=== PATIENT | male | born 1960 | race Caucasian/White ===

== ENCOUNTER 2017-06-30 14:08 | Inpatient (IN) ==
[2017-06-30] MEDS ORDERED: DILTIAZEM 100 MG VIAL.ADD IV ONE (14:23)
[2017-06-30] MEDS ORDERED: ASPIRIN 325 MG TABLET ONE (14:24)
[2017-06-30] MEDS ORDERED: SODIUM CHLORIDE 0.9% 100 ML IV ONE (14:24)
[2017-06-30] MEDS ORDERED: SODIUM CHLORIDE 0.9% 1,000 ML IV STA (14:32)
[2017-06-30] MEDS ORDERED: SODIUM CHLORIDE 0.9% 500 ML IV STA (14:33)
[2017-06-30] MEDS ORDERED: ASPIRIN 325 MG TABLET PO STA ×2 (14:33→14:45)
[2017-06-30] MEDS ORDERED: NITROGLYCERIN 2% OINT 1 INCH/GM PACK TOP STA (14:45)
[2017-06-30] MEDS ORDERED: ENOXAPARIN 100 MG/ML SYRINGE SUBCUT STA (14:45)
[2017-06-30] MEDS ORDERED: ENOXAPARIN 100 MG/ML SYRINGE SUBCUT ONE (14:49)
[2017-06-30] MEDS ORDERED: NITROGLYCERIN 2% OINT 1 INCH/GM PACK TOP ONE (14:50)
[2017-06-30 14:52] LABS: Basophils # 0.1 10*3/uL (0.0-0.2); Basophils % 0.3 % (0.0-0.8); Eosinophils # 0.1 10*3/uL (0.0-0.87); Eosinophils % 0.5 % (0.00-10.9); Hematocrit 51.3 VOL% (42.0-52.0); Hemoglobin 17.7 GM/DL (14.0-18.0); Immature Granulocytes % 0.5 %; Immature Granulocytes Absolute 0.07 #; Lymphocytes # 3.1 10*3/uL (1.4-4.0); Lymphocytes % 21.4 % (21.2-54.2); Mean Corpuscular HGB Conc 34.5 GM/DL (32-36); Mean Corpuscular Hemoglobin 33 PG (27-34); Mean Corpuscular Volume 95.9 FL (87-102); Mean Platelet Volume 10.9 FL (9.6-12.0); Monocytes # 0.9 10*3/uL (0.11-0.8); Monocytes % 6.5 % (1.7-12.7); Neutrophils # 10.2 10*3/uL (1.4-7.4); Neutrophils % 70.8 % (38.7-73.9); Platelet Count 329 T/CUMM (130-400); Red Blood Count 5.35 MC/CUMM (3.8-5.5); Red Cell Distribution Width 12.5 % (9.3-17.3); White Blood Count 14.4 T/CUMM (4-12)
[2017-06-30] MEDS ORDERED: ONDANSETRON 4 MG/2 ML VIAL IV PRN (15:05)
[2017-06-30] MEDS ORDERED: ZALEPLON 5 MG CAPSULE PO PRN (15:05)
[2017-06-30] MEDS ORDERED: diphenhydrAMINE CAP 25 MG CAPSULE PO ONE (15:05)
[2017-06-30] MEDS ORDERED: DIAZEPAM 5 MG TABLET PO ONE (15:05)
[2017-06-30] MEDS ORDERED: POTASSIUM CHLORIDE RIDER 10 MEQ in PREMIX 1 EACH IV PRN (15:05)
[2017-06-30] MEDS ORDERED: MAGNESIUM SULF RIDER 2 GM in PREMIX 1 EACH IV PRN (15:05)
[2017-06-30] MEDS ORDERED: LIDOCAINE 1% 20 ML VIAL ONE (15:08)
[2017-06-30] MEDS ORDERED: HEPARIN/NACL 0.9% 2 UNITS/ML 0 ML IV ONE (15:08)
[2017-06-30] MEDS ORDERED: HEPARIN/NACL 0.9% 2 UNITS/ML 2,000 ML IV ONE (15:12)
[2017-06-30] MEDS ORDERED: fentaNYL 100 MCG/2 ML VIAL ONE (15:18)
[2017-06-30] MEDS ORDERED: MIDAZOLAM 2 MG/2 ML VIAL ONE ×2 (15:18→15:48)
[2017-06-30 15:29] LABS: Albumin 3.9 G/DL (3.4-5.0); Bilirubin,Total 2.8 MG/DL (0.2-1.0); Calcium 9.3 MG/DL (8.5-10.1); Osmolality,Calculated 274.7 MOS/KG (273-304); Potassium 4.3 MMOL/L (3.5-5.1); Total Protein 8.5 G/DL (6.4-8.3)
[2017-06-30] MEDS ORDERED: ACETAMINOPHEN/CODEINE 300-30 MG TABLET PO PRN (16:19)
[2017-06-30] MEDS ORDERED: INFLUENZA VIRUS VACCINE 0.5 ML SYRINGE IM ONE (17:09)
[2017-06-30] MEDS: SODIUM CHLORIDE 0.45% 1,000 ML IV SCH (17:31)
[2017-06-30 18:00] LABS: Risk Ratio 3.8; Thyroid Stimulating Hormone 2.75 uIU/ml (0.358-3.74); VLDL CHOLESTEROL 18.4 MG/DL
[2017-06-30] MEDS: CARVEDILOL 6.25 MG TABLET PO SCH (21:13)
[2017-06-30] MEDS: hydrALAZINE 20 MG/1 ML VIAL IV PRN (21:13)
[2017-06-30] MEDS: ATORVASTATIN 80 MG TABLET PO SCH (21:13)
[2017-06-30] MEDS: ACETAMINOPHEN 325 MG TABLET PO PRN (22:44)
[2017-06-30] MEDS: MORPHINE 2 MG/1 ML SYRINGE IV PRN (23:36)
[2017-07-01 00:43] LABS: Apearance,Urine Slightly Hazy (Clear); Bilirubin,Urine Negative (Negative); Blood, Urine Moderate mg/dL (Negative); Glucose,Urine (UA) Negative (Negative); Hyaline Casts,Urine 4 /LPF (0-3); Ketones,Urine 20 mg/dL (Negative); Mucus,Urine Occasional /LPF (Occasional); Nitrite,Urine Negative (Negative); Protein,Urine Negative; RBC,Urine 5 /HPF (0-4); Squamous Epithelial Cell,Urine Occasional /HPF (0-10); Urine Color Yellow (Yellow); Urine Specific Gravity 1.033 (1.001-1.035); Urine Urobilinogen < 2.0 EU/DL (0.2-1.0); WBC,Urine 14 /HPF (0-6)
[2017-07-01] MEDS: SODIUM CHLORIDE 0.45% 1,000 ML IV SCH (01:48)
[2017-07-01 03:43] LABS: Basophils % 0.2 % (0.0-0.8); Eosinophils % 0.3 % (0.00-10.9); Hematocrit 44.1 VOL% (42.0-52.0); Hemoglobin 15.6 GM/DL (14.0-18.0); Immature Granulocytes % 0.3 %; Immature Granulocytes Absolute 0.03 #; Lymphocytes # 2.1 10*3/uL (1.4-4.0); Mean Corpuscular HGB Conc 35.4 GM/DL (32-36); Mean Corpuscular Hemoglobin 34 PG (27-34); Mean Corpuscular Volume 95.2 FL (87-102); Mean Platelet Volume 10.6 FL (9.6-12.0); Monocytes # 0.7 10*3/uL (0.11-0.8); Monocytes % 6.6 % (1.7-12.7); Neutrophils # 7.2 10*3/uL (1.4-7.4); Neutrophils % 71.6 % (38.7-73.9); Platelet Count 279 T/CUMM (130-400); Red Blood Count 4.63 MC/CUMM (3.8-5.5); White Blood Count 10.1 T/CUMM (4-12)
[2017-07-01 04:16] LABS: Calcium 8.6 MG/DL (8.5-10.1); Osmolality,Calculated 275.7 MOS/KG (273-304); Potassium 4.3 MMOL/L (3.5-5.1)
[2017-07-01] MEDS: CARVEDILOL 6.25 MG TABLET PO SCH ×2 (08:38→20:01)
[2017-07-01] MEDS: ASPIRIN 325 MG TABLET PO SCH (08:38)
[2017-07-01] MEDS: LOSARTAN 25 MG TABLET PO SCH (08:38)
[2017-07-01] MEDS: ISOSORBIDE MONONITRATE 30 MG TABLET PO SCH (10:41)
[2017-07-01 13:08] LABS: Albumin 3.2 G/DL (3.4-5.0); Bilirubin,Direct 0.39 MG/DL (0.0-0.20); Bilirubin,Indirect 2.3 MG/DL (0.0-1.0); Bilirubin,Total 2.7 MG/DL (0.2-1.0); Total Protein 6.8 G/DL (6.4-8.3)
[2017-07-01] MEDS ORDERED: ENOXAPARIN 40 MG/0.4 ML SYRINGE SUBCUT SCH (14:00)
[2017-07-01] MEDS ORDERED: MAGNESIUM HYDROXIDE SUSP 30 ML UDCUP PO PRN (15:20)
[2017-07-01] MEDS ORDERED: diphenhydrAMINE CAP 25 MG CAPSULE PO PRN (15:20)
[2017-07-01] MEDS: hydrALAZINE 20 MG/1 ML VIAL IV PRN (18:10)
[2017-07-01] MEDS: CHLORHEXIDINE 0.12% ORAL RINSE 60 ML BOTTLE SWISH/SPIT SCH (20:01)
[2017-07-01] MEDS: ATORVASTATIN 80 MG TABLET PO SCH (20:01)
[2017-07-01] MEDS: ACETAMINOPHEN 325 MG TABLET PO PRN (20:01)
[2017-07-02 05:16] LABS: Basophils % 0.2 % (0.0-0.8); Eosinophils # 0.1 10*3/uL (0.0-0.87); Eosinophils % 0.5 % (0.00-10.9); Hematocrit 43.2 VOL% (42.0-52.0); Hemoglobin 14.6 GM/DL (14.0-18.0); Immature Granulocytes % 0.5 %; Immature Granulocytes Absolute 0.05 #; Lymphocytes # 2.6 10*3/uL (1.4-4.0); Lymphocytes % 28.1 % (21.2-54.2); Mean Corpuscular HGB Conc 33.8 GM/DL (32-36); Mean Corpuscular Hemoglobin 33 PG (27-34); Mean Corpuscular Volume 97.5 FL (87-102); Mean Platelet Volume 10.7 FL (9.6-12.0); Monocytes # 0.7 10*3/uL (0.11-0.8); Monocytes % 7.2 % (1.7-12.7); Neutrophils # 5.8 10*3/uL (1.4-7.4); Neutrophils % 63.5 % (38.7-73.9); Platelet Count 256 T/CUMM (130-400); Red Blood Count 4.43 MC/CUMM (3.8-5.5); Red Cell Distribution Width 12.8 % (9.3-17.3); White Blood Count 9.2 T/CUMM (4-12)
[2017-07-02 06:21] LABS: Calcium 8.6 MG/DL (8.5-10.1); Osmolality,Calculated 273.8 MOS/KG (273-304); Potassium 3.9 MMOL/L (3.5-5.1)
[2017-07-02] MEDS: CHLORHEXIDINE 0.12% ORAL RINSE 60 ML BOTTLE SWISH/SPIT SCH ×4 (08:51→21:52)
[2017-07-02] MEDS: CHLORHEXIDINE 4% SOLN 118 ML BOTTLE TOP SCH ×3 (08:55→21:43)
[2017-07-02] MEDS: CARVEDILOL 6.25 MG TABLET PO SCH (08:55)
[2017-07-02] MEDS: ISOSORBIDE MONONITRATE 30 MG TABLET PO SCH (08:55)
[2017-07-02] MEDS: LOSARTAN 25 MG TABLET PO SCH (08:55)
[2017-07-02] MEDS: SODIUM CHLORIDE 0.9% 1,000 ML IV SCH (09:00)
[2017-07-02] MEDS ORDERED: LIDOCAINE 1%/EPI INJ 20 ML VIAL ONE (11:17)
[2017-07-02] MEDS ORDERED: CHLORHEXIDINE 0.12% ORAL RINSE 60 ML BOTTLE SWISH/SPIT ONE (11:17)
[2017-07-02] MEDS ORDERED: ceFAZolin 1,000 MG VIAL ONE (12:27)
[2017-07-02] MEDS ORDERED: ETOMIDATE 40 MG/20 ML VIAL IV ONE (13:14)
[2017-07-02] MEDS ORDERED: fentaNYL 100 MCG/2 ML VIAL ONE (13:14)
[2017-07-02] MEDS ORDERED: SEVOFLURANE 1 UNIT/15 MINUTE INH ONE (13:14)
[2017-07-02] MEDS ORDERED: PHENYLEPHRINE 0.5% NASAL SPRAY 15 ML BOTTLE BOTH NARES ONE (13:14)
[2017-07-02] MEDS ORDERED: ONDANSETRON 4 MG/2 ML VIAL ONE (13:14)
[2017-07-02] MEDS ORDERED: SUCCINYLCHOLINE 200 MG/10 ML VIAL ONE (13:14)
[2017-07-02] MEDS ORDERED: MIDAZOLAM 2 MG/2 ML VIAL ONE (13:14)
[2017-07-02] MEDS ORDERED: hydrALAZINE 20 MG/1 ML VIAL ONE (13:24)
[2017-07-02] MEDS: hydrALAZINE 20 MG/1 ML VIAL IV PRN (13:25)
[2017-07-02] MEDS ORDERED: oxyCODONE/ACETAMINOPHEN 5-325 MG TABLET PO PRN (14:29)
[2017-07-02] MEDS: MORPHINE 2 MG/1 ML SYRINGE IV PRN ×3 (14:37→23:35)
[2017-07-02] MEDS ORDERED: METOPROLOL TARTRATE 5 MG/5 ML VIAL IV ONE ×2 (16:52→17:45)
[2017-07-02] MEDS: ASPIRIN 325 MG TABLET PO SCH (16:53)
[2017-07-02] MEDS: CARVEDILOL 25 MG TABLET PO SCH (18:29)
[2017-07-02] MEDS: ATORVASTATIN 80 MG TABLET PO SCH (21:51)
[2017-07-03] MEDS: MORPHINE 2 MG/1 ML SYRINGE IV PRN ×3 (03:11→23:53)
[2017-07-03] MEDS ORDERED: VANCOMYCIN 1,000 MG VIAL ONE (05:20)
[2017-07-03] MEDS ORDERED: TISSUE ADHESIVE 1 EACH APPLICATOR TOP ONE (05:20)
[2017-07-03] MEDS ORDERED: PAPAVERINE 60 MG/2 ML VIAL ONE (05:20)
[2017-07-03] MEDS ORDERED: TRANEXAMIC ACID 1,000 MG/10 ML VIAL IV ONE (05:26)
[2017-07-03] MEDS ORDERED: CEFUROXIME INJ 1,500 MG in SYRINGE 1 EACH IV ONE (06:00)
[2017-07-03] MEDS ORDERED: CEFUROXIME 1,500 MG VIAL ONE (06:48)
[2017-07-03] MEDS: SODIUM CHLORIDE 0.9% 1,000 ML IV SCH (07:00)
[2017-07-03 08:17] LABS: ABG Base Excess -3.8 MMOL/L (-2.5-2.5); ABG HCO3 21.3 MMOL/L (20-26); ABG Oxygen Saturation 99.5 % (95-100); ABG PCO2 36.9 MM HG (35-48); ABG PH 7.364 (7.35-7.45); ABG TCO2 18.4 MMOL/L (23-27); Glucose Heart Surgery 93 MG/DL (74-106); Hematocrit Heart Surgery 40.8 PERCENT (42-52); Hemoglobin Heart Surgery 13.3 G/DL (14.0-18.0); PCO2 Patient Temp Arterial 36.9 MMHG; PH Patient Temp Arterial 7.364; Patient Temperature 37 CELCIUS; Potassium Heart/CVR 6.1 MMOL/L (3.5-5.1); Sodium Heart/CVR 134 MMOL/L (135-145)
[2017-07-03 08:40] LABS: Apearance,Urine CLOUDY (Clear); Bilirubin,Urine Negative (Negative); Blood, Urine Large mg/dL (Negative); Glucose,Urine (UA) Negative (Negative); Ketones,Urine 20 mg/dL (Negative); Mucus,Urine Occasional /LPF (Occasional); Nitrite,Urine Negative (Negative); Protein,Urine 30 MG/DL; RBC,Urine 12 /HPF (0-4); Urine Color Amber (Yellow); Urine Specific Gravity 1.019 (1.001-1.035); WBC,Urine 6 /HPF (0-6)
[2017-07-03] MEDS: LOSARTAN 25 MG TABLET PO SCH (09:20)
[2017-07-03] MEDS: ISOSORBIDE MONONITRATE 30 MG TABLET PO SCH (09:20)
[2017-07-03] MEDS: CHLORHEXIDINE 0.12% ORAL RINSE 60 ML BOTTLE SWISH/SPIT SCH ×3 (09:20→21:30)
[2017-07-03] MEDS: CARVEDILOL 25 MG TABLET PO SCH (09:20)
[2017-07-03] MEDS: ASPIRIN 325 MG TABLET PO SCH (09:20)
[2017-07-03 09:47] LABS: Hematocrit Heart Surgery 29.5 PERCENT (42-52); Hemoglobin Heart Surgery 9.5 G/DL (14.0-18.0); PCO2 Patient Temp Venous 33.1 MM HG; PH Patient Temp Venous 7.411; PO2 Patient Temp Venous 43.1 MM HG; Potassium Heart/CVR 4.1 MMOL/L (3.5-5.1); VBG HCO3 21.7 MEQ/L (24-28); VBG Oxygen Saturation 83.7 %; VBG PCO2 36.4 MMHG (41-51); VBG PH 7.382; VBG PO2 49.4 MMHG (17-40)
[2017-07-03 10:23] LABS: Hemoglobin Heart Surgery 10.7 G/DL (14.0-18.0); PH Patient Temp Venous 7.467; PO2 Patient Temp Venous 37.9 MM HG; VBG Base Excess -2.6 MEQ/L (0-4); VBG HCO3 22.1 MEQ/L (24-28); VBG Oxygen Saturation 85.5 %; VBG PH 7.408; VBG PO2 49.9 MMHG (17-40)
[2017-07-03] MEDS ORDERED: CALCIUM CHLORIDE 1,000 MG/10 ML SYRINGE IV ONE (10:39)
[2017-07-03] MEDS ORDERED: EPINEPHrine 1 MG/10 ML SYRINGE ONE ×2 (10:39→13:12)
[2017-07-03] MEDS ORDERED: SODIUM BICARBONATE 50 MEQ/50 ML SYRINGE IV ONE ×2 (10:39→11:49)
[2017-07-03] MEDS ORDERED: POTASSIUM CHLORIDE RIDER 100 ML IV ONE (10:40)
[2017-07-03] MEDS ORDERED: ALBUMIN 5% 12.5 GM/250 ML VIAL IV ONE ×2 (10:40)
[2017-07-03 10:44] LABS: Hematocrit Heart Surgery 31.2 PERCENT (42-52); Hemoglobin Heart Surgery 10.1 G/DL (14.0-18.0); PCO2 Patient Temp Venous 32.2 MM HG; PH Patient Temp Venous 7.455; PO2 Patient Temp Venous 38.7 MM HG; Potassium Heart/CVR 4.3 MMOL/L (3.5-5.1); VBG Base Excess -0.7 MEQ/L (0-4); VBG HCO3 23.6 MEQ/L (24-28); VBG Oxygen Saturation 78.8 %; VBG PCO2 33.8 MMHG (41-51); VBG PH 7.441; VBG PO2 41.5 MMHG (17-40)
[2017-07-03 11:19] LABS: Hematocrit Heart Surgery 26.5 PERCENT (42-52); Hemoglobin Heart Surgery 8.5 G/DL (14.0-18.0); PCO2 Patient Temp Venous 44.8 MM HG; PH Patient Temp Venous 7.374; PO2 Patient Temp Venous 36.5 MM HG; Potassium Heart/CVR 5.2 MMOL/L (3.5-5.1); VBG Base Excess 0.7 MEQ/L (0-4); VBG HCO3 24.6 MEQ/L (24-28); VBG Oxygen Saturation 65.8 %; VBG PCO2 44.8 MMHG (41-51); VBG PH 7.374; VBG PO2 36.5 MMHG (17-40)
[2017-07-03] MEDS ORDERED: THROMBIN TOPICAL (RECOMBINANT) 5,000 UNIT VIAL TOP ONE (11:40)
[2017-07-03] MEDS ORDERED: methylPREDNISolone SOD SUC 1,000 MG/8 ML VIAL ONE (11:49)
[2017-07-03] MEDS ORDERED: MANNITOL 12.5 GM/50 ML VIAL IV ONE (11:49)
[2017-07-03] MEDS ORDERED: DEXTROSE 5% KCL 20 MEQ 40 MEQ/2,000 ML BAG IV ONE (11:49)
[2017-07-03] MEDS ORDERED: MAGNESIUM SULFATE 1 GM/2 ML VIAL ONE (11:49)
[2017-07-03] MEDS ORDERED: PROTAMINE SULFATE 250 MG/25 ML VIAL IV ONE (11:49)
[2017-07-03] MEDS ORDERED: ALBUMIN 25% 25 GM/100 ML VIAL IV ONE (11:49)
[2017-07-03] MEDS ORDERED: HEPARIN 10,000 UNIT/10 ML VIAL ONE (11:49)
[2017-07-03] MEDS ORDERED: POTASSIUM CHLORIDE 20 MEQ/10 ML VIAL ONE (11:50)
[2017-07-03] MEDS ORDERED: PROTAMINE SULFATE 50 MG/5 ML VIAL IV ONE (11:50)
[2017-07-03] MEDS ORDERED: FUROSEMIDE 20 MG/2 ML VIAL ONE (11:50)
[2017-07-03 12:02] LABS: Hemoglobin Heart Surgery 5.5 G/DL (14.0-18.0); PCO2 Patient Temp Venous 23.5 MM HG; PH Patient Temp Venous 7.341; PO2 Patient Temp Venous 44.8 MM HG; Potassium Heart/CVR 2.9 MMOL/L (3.5-5.1); VBG Base Excess -12.3 MEQ/L (0-4); VBG HCO3 12.4 MEQ/L (24-28); VBG Oxygen Saturation 73.2 %; VBG PCO2 23.5 MMHG (41-51); VBG PH 7.341; VBG PO2 44.8 MMHG (17-40)
[2017-07-03] MEDS ORDERED: AMIODARONE 150 MG/3 ML VIAL ONE ×2 (12:03→13:13)
[2017-07-03 12:18] LABS: ABG Base Excess -0.7 MMOL/L (-2.5-2.5); ABG HCO3 23.8 MMOL/L (20-26); ABG Oxygen Saturation 99.7 % (95-100); ABG PH 7.374 (7.35-7.45); ABG TCO2 22.1 MMOL/L (23-27); Glucose Heart Surgery 236 MG/DL (74-106); Hematocrit Heart Surgery 33.5 PERCENT (42-52); Hemoglobin Heart Surgery 10.9 G/DL (14.0-18.0); Ionized Calcium Arterial 1.19 MMOL/L (1.21-1.46); PH Patient Temp Arterial 7.374; Patient Temperature 37 CELCIUS; Potassium Heart/CVR 3.3 MMOL/L (3.5-5.1); Sodium Heart/CVR 135 MMOL/L (135-145)
[2017-07-03] MEDS ORDERED: AMIODARONE INJ 450 MG in DEXTROSE 5% 241 ML IV SCH (12:45)
[2017-07-03] MEDS: SODIUM CHLORIDE 0.45% 1,000 ML IV SCH ×2 (12:45)
[2017-07-03] MEDS ORDERED: SODIUM CHLORIDE 0.9% 250 ML IV PRN (12:47)
[2017-07-03] MEDS ORDERED: POTASSIUM CHLORIDE RIDER 10 MEQ in PREMIX 1 EACH IV PRN (12:47)
[2017-07-03] MEDS ORDERED: INSULIN REGULAR 100 UNIT/ML IV PRN (12:47)
[2017-07-03] MEDS ORDERED: DEXTROSE 50% 25 GM/50 ML VIAL IV PRN ×2 (12:47)
[2017-07-03] MEDS ORDERED: CALCIUM CHLORIDE 1,000 MG/10 ML SYRINGE IV PRN (12:47)
[2017-07-03] MEDS ORDERED: MIDAZOLAM 2 MG/2 ML VIAL IV PRN (12:47)
[2017-07-03] MEDS ORDERED: CHLORHEXIDINE 4% SOLN 118 ML BOTTLE TOP PRN (12:47)
[2017-07-03] MEDS ORDERED: ACETAMINOPHEN 650 MG SUPP RECTAL PRN (12:47)
[2017-07-03] MEDS ORDERED: MAGNESIUM SULF RIDER 2 GM in PREMIX 1 EACH IV PRN (12:47)
[2017-07-03] MEDS ORDERED: MAGNESIUM SULF RIDER 4 GM in PREMIX 1 EACH IV PRN (12:47)
[2017-07-03] MEDS ORDERED: ALBUMIN 5% 12.5 GM in PREMIX 1 EACH IV PRN (12:47)
[2017-07-03] MEDS ORDERED: INSULIN REGULAR DRIP 100 ML IV SCH (13:00)
[2017-07-03] MEDS ORDERED: PROPOFOL 200 MG/20 ML VIAL IV ONE (13:12)
[2017-07-03] MEDS ORDERED: HEPARIN/NACL 0.9% 2 UNITS/ML 1,000 ML IV ONE (13:12)
[2017-07-03] MEDS ORDERED: CALCIUM CHLORIDE 1,000 MG/10 ML VIAL IV ONE (13:12)
[2017-07-03] MEDS ORDERED: SEVOFLURANE 1 UNIT/15 MINUTE INH ONE (13:12)
[2017-07-03] MEDS ORDERED: PHENYLEPHRINE 10 MG/1 ML VIAL IV ONE (13:13)
[2017-07-03] MEDS ORDERED: ESMOLOL 100 MG/10 ML VIAL IV ONE (13:13)
[2017-07-03] MEDS ORDERED: MIDAZOLAM 10 MG/2 ML VIAL ONE (13:13)
[2017-07-03] MEDS ORDERED: VECURONIUM 10 MG VIAL IV ONE (13:13)
[2017-07-03] MEDS ORDERED: ETOMIDATE 40 MG/20 ML VIAL IV ONE (13:14)
[2017-07-03] MEDS ORDERED: SODIUM CHLORIDE 0.9% 250 ML IV ONE (13:14)
[2017-07-03] MEDS ORDERED: NITROGLYCERIN DRIP 50 MG/250 ML BOTTLE IV ONE ×2 (13:14→14:00)
[2017-07-03] MEDS ORDERED: SODIUM CHLORIDE 0.9% 2,000 ML IV ONE (13:14)
[2017-07-03] MEDS ORDERED: SODIUM CHLORIDE 0.9% 200 ML IV ONE (13:14)
[2017-07-03] MEDS ORDERED: LACTATED RINGERS 2,000 ML IV ONE (13:14)
[2017-07-03 13:24] LABS: ABG Base Excess 0.1 MMOL/L (-2.5-2.5); ABG HCO3 24.6 MMOL/L (20-26); ABG Oxygen Saturation 98.6 % (95-100); ABG PCO2 39.1 MM HG (35-48); ABG PH 7.408 (7.35-7.45); ABG TCO2 22.1 MMOL/L (23-27); Glucose Heart Surgery 179 MG/DL (74-106); Hematocrit Heart Surgery 34.6 PERCENT (42-52); Hemoglobin Heart Surgery 11.2 G/DL (14.0-18.0); Potassium Heart/CVR 4.3 MMOL/L (3.5-5.1)
[2017-07-03 13:33] LABS: Basophils % 0.2 % (0.0-0.8); Eosinophils % 0.1 % (0.00-10.9); Hematocrit 33.9 VOL% (42.0-52.0); Hemoglobin 11.5 GM/DL (14.0-18.0); Immature Granulocytes % 0.8 %; Immature Granulocytes Absolute 0.13 #; Lymphocytes # 1.3 10*3/uL (1.4-4.0); Lymphocytes % 7.6 % (21.2-54.2); Mean Corpuscular HGB Conc 33.9 GM/DL (32-36); Mean Corpuscular Hemoglobin 33 PG (27-34); Mean Corpuscular Volume 98.3 FL (87-102); Mean Platelet Volume 10.8 FL (9.6-12.0); Monocytes # 0.6 10*3/uL (0.11-0.8); Monocytes % 3.4 % (1.7-12.7); Neutrophils % 87.9 % (38.7-73.9); Platelet Count 207 T/CUMM (130-400); Red Blood Count 3.45 MC/CUMM (3.8-5.5); Red Cell Distribution Width 12.7 % (9.3-17.3)
[2017-07-03] MEDS: THIAMINE INJ 100 MG, FOLIC ACID INJ 1 MG, MULTIVITAMIN INJ 10 ML in SODIUM CHLORIDE 0.4... IV SCH (13:40)
[2017-07-03] MEDS: DEXMEDETOMIDINE 200 MCG in SODIUM CHLORIDE 0.9% 48 ML IV SCH (13:40)
[2017-07-03 13:46] LABS: INR 1.1; PT Patient Result 11.6 SECS
[2017-07-03 13:48] LABS: Lactic Acid 2.1 MMOL/L (0.4-2.0)
[2017-07-03 13:52] LABS: Calcium 7.8 MG/DL (8.5-10.1); Osmolality,Calculated 283.4 MOS/KG (273-304); Potassium 4.5 MMOL/L (3.5-5.1)
[2017-07-03] MEDS ORDERED: NITROGLYCERIN DRIP 50 MG/250 ML BOTTLE IV SCH (14:30)
[2017-07-03 17:10] LABS: ABG Base Excess 1.1 MMOL/L (-2.5-2.5); ABG HCO3 25.4 MMOL/L (20-26); ABG Oxygen Saturation 99.1 % (95-100); ABG PCO2 36.8 MM HG (35-48); ABG PH 7.439 (7.35-7.45); ABG TCO2 21.9 MMOL/L (23-27); Glucose Heart Surgery 152 MG/DL (74-106); Hematocrit Heart Surgery 38.5 PERCENT (42-52); Hemoglobin Heart Surgery 12.5 G/DL (14.0-18.0); Potassium Heart/CVR 3.5 MMOL/L (3.5-5.1)
[2017-07-03] MEDS: AMIODARONE INJ 450 MG in DEXTROSE 5% 241 ML IV SCH ×2 (18:03→23:48)
[2017-07-03] MEDS: POTASSIUM CHLORIDE RIDER 20 MEQ in PREMIX 1 EACH IV PRN ×2 (19:00→20:27)
[2017-07-03] MEDS: INSULIN REGULAR 100 UNIT/ML SUBCUT SCH (20:12)
[2017-07-03] MEDS: chlordiazePOXIDE 10 MG CAPSULE PO SCH (21:24)
[2017-07-03] MEDS: CEFUROXIME INJ 1,500 MG in SYRINGE 1 EACH IV SCH (21:29)
[2017-07-04] MEDS: INSULIN REGULAR 100 UNIT/ML SUBCUT SCH ×7 (00:02→20:53)
[2017-07-04] MEDS: DEXMEDETOMIDINE 200 MCG in SODIUM CHLORIDE 0.9% 48 ML IV SCH (01:29)
[2017-07-04] MEDS: SODIUM CHLORIDE 0.45% 1,000 ML IV SCH ×2 (03:09→12:00)
[2017-07-04 04:28] LABS: Basophils % 0.1 % (0.0-0.8); Hematocrit 34.4 VOL% (42.0-52.0); Hemoglobin 11.5 GM/DL (14.0-18.0); Immature Granulocytes % 0.4 %; Immature Granulocytes Absolute 0.08 #; Lymphocytes # 1.1 10*3/uL (1.4-4.0); Lymphocytes % 5.8 % (21.2-54.2); Mean Corpuscular HGB Conc 33.4 GM/DL (32-36); Mean Corpuscular Hemoglobin 33 PG (27-34); Mean Platelet Volume 11.1 FL (9.6-12.0); Monocytes # 0.7 10*3/uL (0.11-0.8); Monocytes % 3.8 % (1.7-12.7); Neutrophils # 16.2 10*3/uL (1.4-7.4); Neutrophils % 89.9 % (38.7-73.9); Platelet Count 190 T/CUMM (130-400); Red Blood Count 3.44 MC/CUMM (3.8-5.5); Red Cell Distribution Width 12.6 % (9.3-17.3)
[2017-07-04 04:57] LABS: Calcium 7.9 MG/DL (8.5-10.1); Osmolality,Calculated 278.5 MOS/KG (273-304); Potassium 4.4 MMOL/L (3.5-5.1)
[2017-07-04] MEDS: POTASSIUM CHLORIDE RIDER 20 MEQ in PREMIX 1 EACH IV PRN (05:18)
[2017-07-04] MEDS ORDERED: LORazepam 1 MG TABLET PO PRN (07:15)
[2017-07-04] MEDS: CEFUROXIME INJ 1,500 MG in SYRINGE 1 EACH IV SCH ×2 (08:35→21:02)
[2017-07-04] MEDS: ONDANSETRON 4 MG/2 ML VIAL IV PRN (08:36)
[2017-07-04] MEDS: chlordiazePOXIDE 10 MG CAPSULE PO SCH ×3 (08:39→20:56)
[2017-07-04] MEDS: ASPIRIN EC 325 MG TABLET PO SCH (08:40)
[2017-07-04] MEDS: FUROSEMIDE 40 MG TABLET PO SCH (08:40)
[2017-07-04] MEDS ORDERED: LOSARTAN 50 MG TABLET PO SCH (09:00)
[2017-07-04] MEDS ORDERED: LOSARTAN 25 MG TABLET PO SCH (09:00)
[2017-07-04] MEDS: CARVEDILOL 6.25 MG TABLET PO SCH ×2 (09:10→20:55)
[2017-07-04] MEDS: CHLORHEXIDINE 0.12% ORAL RINSE 60 ML BOTTLE SWISH/SPIT SCH ×2 (09:11→21:00)
[2017-07-04] MEDS: MORPHINE 2 MG/1 ML SYRINGE IV PRN (09:30)
[2017-07-04] MEDS ORDERED: FUROSEMIDE 40 MG/4 ML VIAL IV ONE (09:34)
[2017-07-04] MEDS: AMIODARONE 200 MG TABLET PO SCH ×2 (10:23→20:55)
[2017-07-04] MEDS: CLOPIDOGREL 75 MG TABLET PO SCH (10:23)
[2017-07-04] MEDS: LORazepam 0.5 MG TABLET PO SCH ×2 (10:23→17:43)
[2017-07-04] MEDS ORDERED: ePHEDrine 50 MG/ML AMP ONE (10:23)
[2017-07-04] MEDS: hydrALAZINE 25 MG TABLET PO SCH ×2 (11:59→20:56)
[2017-07-04] MEDS: AMIODARONE INJ 450 MG in DEXTROSE 5% 241 ML IV SCH (12:00)
[2017-07-04] MEDS ORDERED: SODIUM CHLORIDE 0.45% 1,000 ML IV SCH (12:30)
[2017-07-04] MEDS: MORPHINE 10 MG/1 ML VIAL IV PRN ×3 (14:05→23:44)
[2017-07-04] MEDS: THIAMINE INJ 100 MG, FOLIC ACID INJ 1 MG, MULTIVITAMIN INJ 10 ML in SODIUM CHLORIDE 0.4... IV SCH (14:06)
[2017-07-04] MEDS ORDERED: AMIODARONE INJ 150 MG in DEXTROSE 5% 100 ML IV ONE (17:50)
[2017-07-04] MEDS: METOPROLOL TARTRATE 5 MG/5 ML VIAL IV SCH ×2 (18:16→18:34)
[2017-07-04] MEDS: ATORVASTATIN 40 MG TABLET PO SCH (20:55)
[2017-07-04] MEDS ORDERED: ATORVASTATIN 40 MG TABLET PO SCH (21:00)
[2017-07-05] MEDS: INSULIN REGULAR 100 UNIT/ML SUBCUT SCH ×7 (02:53→23:44)
[2017-07-05] MEDS: LORazepam 0.5 MG TABLET PO SCH ×4 (03:07→22:18)
[2017-07-05] MEDS ORDERED: SODIUM CHLORIDE 0.45% 1,000 ML IV SCH (04:00)
[2017-07-05 04:35] LABS: Basophils % 0.1 % (0.0-0.8); Eosinophils % 0.1 % (0.00-10.9); Hematocrit 37.1 VOL% (42.0-52.0); Hemoglobin 12.3 GM/DL (14.0-18.0); Immature Granulocytes Absolute 0.28 #; Lymphocytes # 3.1 10*3/uL (1.4-4.0); Lymphocytes % 11.6 % (21.2-54.2); Mean Corpuscular HGB Conc 33.2 GM/DL (32-36); Mean Corpuscular Hemoglobin 34 PG (27-34); Mean Corpuscular Volume 101.4 FL (87-102); Mean Platelet Volume 11.5 FL (9.6-12.0); Monocytes # 1.9 10*3/uL (0.11-0.8); Monocytes % 7.2 % (1.7-12.7); Neutrophils # 21.4 10*3/uL (1.4-7.4); Platelet Count 270 T/CUMM (130-400); Red Blood Count 3.66 MC/CUMM (3.8-5.5); Red Cell Distribution Width 12.8 % (9.3-17.3); White Blood Count 26.8 T/CUMM (4-12)
[2017-07-05 04:56] LABS: Calcium 8.4 MG/DL (8.5-10.1); Osmolality,Calculated 276.7 MOS/KG (273-304); Potassium 4.3 MMOL/L (3.5-5.1)
[2017-07-05] MEDS: MORPHINE 2 MG/1 ML SYRINGE IV PRN ×2 (05:41→14:28)
[2017-07-05 05:47] LABS: Band Neutrophils 3 % (0-10); Lymphocytes 15 % (20-55); Macrocytosis Slight; Segmented Neutrophils 77 % (50-85); Total Cells Counted 100
[2017-07-05] MEDS ORDERED: hydrALAZINE 20 MG/1 ML VIAL IV PRN (05:59)
[2017-07-05] MEDS: CLOPIDOGREL 75 MG TABLET PO SCH (08:16)
[2017-07-05] MEDS: FUROSEMIDE 40 MG TABLET PO SCH (08:16)
[2017-07-05] MEDS: chlordiazePOXIDE 10 MG CAPSULE PO SCH ×2 (08:16→14:45)
[2017-07-05] MEDS: CARVEDILOL 25 MG TABLET PO SCH ×2 (08:16→22:18)
[2017-07-05] MEDS: hydrALAZINE 25 MG TABLET PO SCH ×2 (08:16→22:17)
[2017-07-05] MEDS: AMIODARONE 200 MG TABLET PO SCH ×2 (08:17→22:18)
[2017-07-05] MEDS: ASPIRIN EC 325 MG TABLET PO SCH (08:17)
[2017-07-05] MEDS: LOSARTAN 25 MG TABLET PO SCH (08:17)
[2017-07-05] MEDS: MORPHINE 10 MG/1 ML VIAL IV PRN (08:46)
[2017-07-05] MEDS: CHLORHEXIDINE 0.12% ORAL RINSE 60 ML BOTTLE SWISH/SPIT SCH ×2 (08:51→22:18)
[2017-07-05] MEDS ORDERED: FUROSEMIDE 40 MG/4 ML VIAL IV ONE (09:18)
[2017-07-05] MEDS: ONDANSETRON 4 MG/2 ML VIAL IV PRN (09:43)
[2017-07-05] MEDS: BISACODYL 5 MG TABLET PO SCH (09:44)
[2017-07-05] MEDS: DOCUSATE SODIUM 100 MG CAPSULE PO SCH (09:44)
[2017-07-05] MEDS ORDERED: DILTIAZEM INJ 100 MG in SODIUM CHLORIDE 0.9% 100 ML IV SCH (12:00)
[2017-07-05] MEDS ORDERED: LEVALBUTEROL 1.25 MG/3 ML NEB RESP TX ONE ×3 (18:31→19:30)
[2017-07-05 18:44] LABS: ABG Base Excess 3.9 MMOL/L (-2.5-2.5); ABG HCO3 27.8 MMOL/L (20-26); ABG PCO2 36.1 MM HG (35-48); ABG PH 7.486 (7.35-7.45); ABG TCO2 23.8 MMOL/L (23-27)
[2017-07-05] MEDS ORDERED: LACTATED RINGERS 500 ML IV ONE (19:02)
[2017-07-05] MEDS ORDERED: HYDROCORTISONE 100 MG VIAL IM ONE (19:30)
[2017-07-05] MEDS: PIPERACILLIN/TAZOBACTAM 3,375 MG in SODIUM CHLORIDE 0.9% 100 ML IV SCH (19:40)
[2017-07-05 20:31] LABS: Apearance,Urine Slightly Hazy (Clear); Bilirubin,Urine Negative (Negative); Blood, Urine Large mg/dL (Negative); Glucose,Urine (UA) Negative (Negative); Hyaline Casts,Urine 5 /LPF (0-3); Ketones,Urine Negative (Negative); Mucus,Urine Occasional /LPF (Occasional); Nitrite,Urine Negative (Negative); Protein,Urine Negative; RBC,Urine 35 /HPF (0-4); Squamous Epithelial Cell,Urine Occasional /HPF (0-10); Urine Color Yellow (Yellow); Urine Specific Gravity 1.008 (1.001-1.035); Urine Urobilinogen < 2.0 EU/DL (0.2-1.0); WBC,Urine 15 /HPF (0-6)
[2017-07-05] MEDS ORDERED: LACTATED RINGERS 1,000 ML IV ONE ×2 (20:45→21:41)
[2017-07-05 20:59] LABS: ABG Base Excess 3.9 MMOL/L (-2.5-2.5); ABG HCO3 27.8 MMOL/L (20-26); ABG Oxygen Saturation 92.1 % (95-100); ABG PCO2 37.9 MM HG (35-48); ABG PH 7.471 (7.35-7.45); ABG PO2 62.4 MM HG (80-95); ABG TCO2 24.4 MMOL/L (23-27); Allen Test Positive; Pt O2 Delivery Device Venturi Mask
[2017-07-05] MEDS ORDERED: FLUMAZENIL 0.5 MG/5 ML VIAL IV ONE ×2 (21:00→21:38)
[2017-07-05 21:21] LABS: Basophils % 0.1 % (0.0-0.8); Eosinophils % 0.1 % (0.00-10.9); Hematocrit 33.3 VOL% (42.0-52.0); Hemoglobin 11.7 GM/DL (14.0-18.0); Immature Granulocytes % 0.8 %; Immature Granulocytes Absolute 0.16 #; Lymphocytes # 1.5 10*3/uL (1.4-4.0); Mean Corpuscular HGB Conc 35.1 GM/DL (32-36); Mean Corpuscular Hemoglobin 34 PG (27-34); Mean Corpuscular Volume 97.1 FL (87-102); Mean Platelet Volume 11.3 FL (9.6-12.0); Monocytes # 1.1 10*3/uL (0.11-0.8); Monocytes % 5.7 % (1.7-12.7); Neutrophils # 16.1 10*3/uL (1.4-7.4); Neutrophils % 85.3 % (38.7-73.9); Platelet Count 234 T/CUMM (130-400); Red Blood Count 3.43 MC/CUMM (3.8-5.5); Red Cell Distribution Width 12.7 % (9.3-17.3); White Blood Count 18.9 T/CUMM (4-12)
[2017-07-05 21:41] LABS: Calcium 7.7 MG/DL (8.5-10.1); Osmolality,Calculated 280.7 MOS/KG (273-304); Potassium 3.9 MMOL/L (3.5-5.1)
[2017-07-05] MEDS ORDERED: AMIODARONE 150 MG/3 ML VIAL ONE (21:54)
[2017-07-05] MEDS ORDERED: AMIODARONE INJ 150 MG in DEXTROSE 5% 100 ML IV ONE (22:00)
[2017-07-05] MEDS: ATORVASTATIN 40 MG TABLET PO SCH (22:18)
[2017-07-05] MEDS ORDERED: METOCLOPRAMIDE 10 MG/2 ML VIAL IV SCH (22:30)
[2017-07-06] MEDS: PIPERACILLIN/TAZOBACTAM 3,375 MG in SODIUM CHLORIDE 0.9% 100 ML IV SCH ×3 (03:45→20:48)
[2017-07-06 04:13] LABS: Calcium 7.9 MG/DL (8.5-10.1); Osmolality,Calculated 284.4 MOS/KG (273-304); Potassium 3.6 MMOL/L (3.5-5.1)
[2017-07-06] MEDS: INSULIN REGULAR 100 UNIT/ML SUBCUT SCH ×3 (04:13→12:17)
[2017-07-06 04:19] LABS: Basophils % 0.1 % (0.0-0.8); Hematocrit 31.1 VOL% (42.0-52.0); Hemoglobin 10.8 GM/DL (14.0-18.0); Immature Granulocytes % 0.8 %; Immature Granulocytes Absolute 0.13 #; Lymphocytes # 1.5 10*3/uL (1.4-4.0); Lymphocytes % 9.3 % (21.2-54.2); Mean Corpuscular HGB Conc 34.7 GM/DL (32-36); Mean Corpuscular Hemoglobin 34 PG (27-34); Mean Corpuscular Volume 96.9 FL (87-102); Mean Platelet Volume 11.4 FL (9.6-12.0); Monocytes # 0.9 10*3/uL (0.11-0.8); Monocytes % 5.8 % (1.7-12.7); Neutrophils # 13.3 10*3/uL (1.4-7.4); Platelet Count 214 T/CUMM (130-400); Red Blood Count 3.21 MC/CUMM (3.8-5.5); Red Cell Distribution Width 12.6 % (9.3-17.3); White Blood Count 15.8 T/CUMM (4-12)
[2017-07-06] MEDS: POTASSIUM CHLORIDE RIDER 20 MEQ in PREMIX 1 EACH IV PRN ×2 (05:24→05:55)
[2017-07-06] MEDS ORDERED: chlordiazePOXIDE 10 MG CAPSULE PO SCH (09:00)
[2017-07-06] MEDS: FUROSEMIDE 40 MG TABLET PO SCH (09:32)
[2017-07-06] MEDS: LORazepam 0.5 MG TABLET PO SCH (09:32)
[2017-07-06] MEDS ORDERED: BISACODYL 10 MG SUPP RECTAL ONE (10:59)
[2017-07-06] MEDS: AMIODARONE 200 MG TABLET PO SCH ×2 (11:24→20:49)
[2017-07-06] MEDS: LOSARTAN 25 MG TABLET PO SCH (11:25)
[2017-07-06] MEDS: CLOPIDOGREL 75 MG TABLET PO SCH (11:25)
[2017-07-06] MEDS: BISACODYL 5 MG TABLET PO SCH (11:25)
[2017-07-06] MEDS: ASPIRIN EC 325 MG TABLET PO SCH (11:26)
[2017-07-06] MEDS: CHLORHEXIDINE 0.12% ORAL RINSE 60 ML BOTTLE SWISH/SPIT SCH ×2 (11:26→20:50)
[2017-07-06] MEDS: DOCUSATE SODIUM 100 MG CAPSULE PO SCH (11:26)
[2017-07-06] MEDS: CARVEDILOL 25 MG TABLET PO SCH ×2 (11:26→20:49)
[2017-07-06] MEDS ORDERED: ONDANSETRON 4 MG/2 ML VIAL IV PRN (11:43)
[2017-07-06] MEDS: DEXTROSE 5% NACL 0.45% 1,000 ML IV SCH (12:10)
[2017-07-06] MEDS: hydrALAZINE 25 MG TABLET PO SCH (12:10)
[2017-07-06] MEDS: METOCLOPRAMIDE 10 MG TABLET PO SCH ×2 (12:10→20:49)
[2017-07-06] MEDS ORDERED: SODIUM PHOSPHATE ENEMA 133 ML BOTTLE RECTAL ONE (13:18)
[2017-07-06] MEDS: ATORVASTATIN 40 MG TABLET PO SCH (20:48)
[2017-07-06] MEDS: chlordiazePOXIDE 10 MG CAPSULE PO SCH (20:49)
[2017-07-07] MEDS: PIPERACILLIN/TAZOBACTAM 3,375 MG in SODIUM CHLORIDE 0.9% 100 ML IV SCH ×3 (04:10→21:58)
[2017-07-07] MEDS: DEXTROSE 5% NACL 0.45% 1,000 ML IV SCH (04:44)
[2017-07-07] MEDS: METOCLOPRAMIDE 10 MG TABLET PO SCH ×3 (04:45→21:58)
[2017-07-07 06:23] LABS: Basophils % 0.1 % (0.0-0.8); Eosinophils # 0.1 10*3/uL (0.0-0.87); Eosinophils % 0.6 % (0.00-10.9); Hematocrit 31.4 VOL% (42.0-52.0); Hemoglobin 10.7 GM/DL (14.0-18.0); Immature Granulocytes % 0.4 %; Immature Granulocytes Absolute 0.05 #; Lymphocytes # 1.7 10*3/uL (1.4-4.0); Lymphocytes % 15.1 % (21.2-54.2); Mean Corpuscular HGB Conc 34.1 GM/DL (32-36); Mean Corpuscular Hemoglobin 33 PG (27-34); Mean Corpuscular Volume 96.9 FL (87-102); Mean Platelet Volume 11.2 FL (9.6-12.0); Monocytes % 8.9 % (1.7-12.7); Neutrophils # 8.6 10*3/uL (1.4-7.4); Neutrophils % 74.9 % (38.7-73.9); Platelet Count 260 T/CUMM (130-400); Red Blood Count 3.24 MC/CUMM (3.8-5.5); Red Cell Distribution Width 12.7 % (9.3-17.3); White Blood Count 11.5 T/CUMM (4-12)
[2017-07-07 06:42] LABS: Calcium 8.1 MG/DL (8.5-10.1); Osmolality,Calculated 289.8 MOS/KG (273-304); Potassium 3.4 MMOL/L (3.5-5.1)
[2017-07-07 06:44] LABS: Albumin 2.1 G/DL (3.4-5.0); Bilirubin,Direct 0.37 MG/DL (0.0-0.20); Bilirubin,Indirect 0.9 MG/DL (0.0-1.0); Bilirubin,Total 1.3 MG/DL (0.2-1.0); Total Protein 5.3 G/DL (6.4-8.3)
[2017-07-07] MEDS: ASPIRIN EC 325 MG TABLET PO SCH (08:58)
[2017-07-07] MEDS: chlordiazePOXIDE 10 MG CAPSULE PO SCH ×2 (08:59→21:57)
[2017-07-07] MEDS: CLOPIDOGREL 75 MG TABLET PO SCH (08:59)
[2017-07-07] MEDS: DOCUSATE SODIUM 100 MG CAPSULE PO SCH (08:59)
[2017-07-07] MEDS: LOSARTAN 25 MG TABLET PO SCH (08:59)
[2017-07-07] MEDS: AMIODARONE 200 MG TABLET PO SCH ×2 (08:59→21:57)
[2017-07-07] MEDS: BISACODYL 5 MG TABLET PO SCH (08:59)
[2017-07-07] MEDS: CHLORHEXIDINE 0.12% ORAL RINSE 60 ML BOTTLE SWISH/SPIT SCH (09:00)
[2017-07-07] MEDS: CARVEDILOL 25 MG TABLET PO SCH ×2 (09:00→21:57)
[2017-07-07] MEDS: POTASSIUM CHLORIDE RIDER 20 MEQ in PREMIX 1 EACH IV PRN ×2 (09:04→13:43)
[2017-07-07] MEDS: ATORVASTATIN 40 MG TABLET PO SCH (21:58)
[2017-07-07] MEDS: APIXABAN 5 MG TABLET PO SCH (21:58)
[2017-07-08 04:08] LABS: Basophils % 0.2 % (0.0-0.8); Eosinophils # 0.2 10*3/uL (0.0-0.87); Eosinophils % 1.4 % (0.00-10.9); Hematocrit 30.6 VOL% (42.0-52.0); Hemoglobin 10.5 GM/DL (14.0-18.0); Immature Granulocytes % 0.5 %; Immature Granulocytes Absolute 0.06 #; Lymphocytes # 2.3 10*3/uL (1.4-4.0); Lymphocytes % 20.7 % (21.2-54.2); Mean Corpuscular HGB Conc 34.3 GM/DL (32-36); Mean Corpuscular Hemoglobin 33 PG (27-34); Mean Corpuscular Volume 96.8 FL (87-102); Monocytes # 1.1 10*3/uL (0.11-0.8); Monocytes % 9.6 % (1.7-12.7); Neutrophils # 7.4 10*3/uL (1.4-7.4); Neutrophils % 67.6 % (38.7-73.9); Platelet Count 286 T/CUMM (130-400); Red Blood Count 3.16 MC/CUMM (3.8-5.5); Red Cell Distribution Width 12.4 % (9.3-17.3)
[2017-07-08] MEDS: PIPERACILLIN/TAZOBACTAM 3,375 MG in SODIUM CHLORIDE 0.9% 100 ML IV SCH (04:33)
[2017-07-08] MEDS: METOCLOPRAMIDE 10 MG TABLET PO SCH ×2 (04:33→12:52)
[2017-07-08 04:42] LABS: Calcium 7.9 MG/DL (8.5-10.1); Potassium 3.8 MMOL/L (3.5-5.1)
[2017-07-08] MEDS: MORPHINE 2 MG/1 ML SYRINGE IV PRN (08:31)
[2017-07-08] MEDS: AMIODARONE 200 MG TABLET PO SCH (08:32)
[2017-07-08] MEDS: chlordiazePOXIDE 10 MG CAPSULE PO SCH (08:32)
[2017-07-08] MEDS: LOSARTAN 25 MG TABLET PO SCH (08:32)
[2017-07-08] MEDS: APIXABAN 5 MG TABLET PO SCH (08:32)
[2017-07-08] MEDS: CARVEDILOL 25 MG TABLET PO SCH (08:33)
[2017-07-08] MEDS: DOCUSATE SODIUM 100 MG CAPSULE PO SCH (08:33)
[2017-07-08] MEDS: BISACODYL 5 MG TABLET PO SCH (08:33)
[2017-07-08] MEDS ORDERED: LEVOFLOXACIN 750 MG TABLET PO SCH (09:00)
[2017-07-08] MEDS ORDERED: ASPIRIN EC 81 MG TABLET PO SCH (09:00)
[2017-07-08 12:11] VITALS: BP 136/83
== END 2017-07-08 15:28 | disposition home health service (06) | DRG 233 ==
LOC: N.ED 14:08 → N.CL 15:28 → N.CC 15:30 → N.CVR 07-03 07:52 → N.ICU 07-04 11:07 → N.TELES 07-05 11:46 → N.ICU 07-05 21:09 → N.TELES 07-06 22:33
PROVIDERS: ADMIT Internal Medicine Cardiovascular Disease; ATTEND Internal Medicine Cardiovascular Disease

== ENCOUNTER 2017-07-13 13:31 | Inpatient (IN) ==
[2017-07-13] MEDS ORDERED: ASPIRIN 325 MG TABLET PO STA (13:56)
[2017-07-13] MEDS ORDERED: ASPIRIN CHEW 81 MG TABLET PO STA (14:02)
[2017-07-13] MEDS ORDERED: NITROGLYCERIN SL 0.4 MG TABLET SL PRN (14:02)
[2017-07-13] MEDS ORDERED: ASPIRIN 325 MG TABLET ONE (14:11)
[2017-07-13] MEDS ORDERED: NITROGLYCERIN SL 0.4 MG TABLET SL ONE (14:11)
[2017-07-13 14:15] LABS: Basophils % 0.2 % (0.0-0.8); Eosinophils # 0.2 10*3/uL (0.0-0.87); Eosinophils % 1.1 % (0.00-10.9); Hematocrit 35.9 VOL% (42.0-52.0); Hemoglobin 12.1 GM/DL (14.0-18.0); Immature Granulocytes Absolute 0.16 #; Lymphocytes # 2.4 10*3/uL (1.4-4.0); Lymphocytes % 14.2 % (21.2-54.2); Mean Corpuscular HGB Conc 33.7 GM/DL (32-36); Mean Corpuscular Hemoglobin 33 PG (27-34); Mean Corpuscular Volume 97.6 FL (87-102); Mean Platelet Volume 10.8 FL (9.6-12.0); Monocytes % 6.2 % (1.7-12.7); Neutrophils % 77.3 % (38.7-73.9); Platelet Count 521 T/CUMM (130-400); Red Blood Count 3.68 MC/CUMM (3.8-5.5); Red Cell Distribution Width 12.3 % (9.3-17.3); White Blood Count 16.8 T/CUMM (4-12)
[2017-07-13] MEDS ORDERED: ALUM/MAG/SIMETH/LIDO VISC 1:1 30 ML BOTTLE PO ONE (14:18)
[2017-07-13] MEDS ORDERED: ALUM/MAG/SIMETH/LIDO VISC 1:1 30 ML BOTTLE PO STA (14:21)
[2017-07-13 14:25] LABS: INR 1.2; PT Patient Result 12.5 SECS; Partial Thromboplastin Time 32.7 SECS (0-40)
[2017-07-13] MEDS ORDERED: TICAGRELOR 90 MG TABLET PO STA (14:28)
[2017-07-13] MEDS ORDERED: TICAGRELOR 90 MG TABLET ONE (14:29)
[2017-07-13] MEDS ORDERED: ENOXAPARIN 80 MG/0.8 ML SYRINGE SUBCUT STA (14:29)
[2017-07-13] MEDS ORDERED: ENOXAPARIN 80 MG/0.8 ML SYRINGE SUBCUT ONE (14:30)
[2017-07-13 14:31] LABS: Calcium 8.6 MG/DL (8.5-10.1); Osmolality,Calculated 276.7 MOS/KG (273-304); Potassium 4.1 MMOL/L (3.5-5.1)
[2017-07-13] MEDS ORDERED: MAGNESIUM SULF RIDER 4 GM in PREMIX 1 EACH IV PRN (14:44)
[2017-07-13] MEDS ORDERED: ZALEPLON 5 MG CAPSULE PO PRN (14:44)
[2017-07-13] MEDS ORDERED: ACETAMINOPHEN 325 MG TABLET PO PRN (14:44)
[2017-07-13] MEDS ORDERED: MAGNESIUM SULF RIDER 2 GM in PREMIX 1 EACH IV PRN (14:44)
[2017-07-13] MEDS ORDERED: POTASSIUM CHLORIDE RIDER 10 MEQ in PREMIX 1 EACH IV PRN (14:44)
[2017-07-13] MEDS ORDERED: ONDANSETRON 4 MG/2 ML VIAL IV PRN (14:44)
[2017-07-13] MEDS ORDERED: diphenhydrAMINE CAP 25 MG CAPSULE PO ONE (14:52)
[2017-07-13] MEDS ORDERED: DIAZEPAM 5 MG TABLET PO ONE (14:52)
[2017-07-13] MEDS ORDERED: CARVEDILOL 25 MG TABLET PO SCH (15:30)
[2017-07-13] MEDS: GABAPENTIN 100 MG CAPSULE PO SCH ×2 (17:57→21:18)
[2017-07-13] MEDS: ACETAMINOPHEN 325 MG TABLET PO SCH (17:57)
[2017-07-13] MEDS: PANTOPRAZOLE 40 MG TABLET PO SCH (18:00)
[2017-07-13] MEDS: CARVEDILOL 25 MG TABLET PO SCH ×2 (18:00→23:45)
[2017-07-13] MEDS: ENOXAPARIN 60 MG/0.6 ML SYRINGE SUBCUT SCH (21:17)
[2017-07-13] MEDS: ATORVASTATIN 40 MG TABLET PO SCH (21:18)
[2017-07-13] MEDS: TICAGRELOR 90 MG TABLET PO SCH (21:19)
[2017-07-13] MEDS: AMIODARONE 200 MG TABLET PO SCH (21:19)
[2017-07-14] MEDS: SODIUM CHLORIDE 0.9% 1,000 ML IV SCH ×4 (02:00→21:00)
[2017-07-14] MEDS: ACETAMINOPHEN 325 MG TABLET PO SCH ×3 (04:33→20:53)
[2017-07-14 05:00] LABS: Basophils % 0.2 % (0.0-0.8); Eosinophils # 0.1 10*3/uL (0.0-0.87); Eosinophils % 0.7 % (0.00-10.9); Hematocrit 33.4 VOL% (42.0-52.0); Immature Granulocytes % 0.9 %; Immature Granulocytes Absolute 0.14 #; Lymphocytes # 1.9 10*3/uL (1.4-4.0); Lymphocytes % 12.7 % (21.2-54.2); Mean Corpuscular HGB Conc 32.9 GM/DL (32-36); Mean Corpuscular Hemoglobin 33 PG (27-34); Mean Corpuscular Volume 99.1 FL (87-102); Mean Platelet Volume 10.8 FL (9.6-12.0); Monocytes # 0.9 10*3/uL (0.11-0.8); Monocytes % 6.1 % (1.7-12.7); Neutrophils % 79.4 % (38.7-73.9); Platelet Count 414 T/CUMM (130-400); Red Blood Count 3.37 MC/CUMM (3.8-5.5); Red Cell Distribution Width 12.3 % (9.3-17.3); White Blood Count 15.1 T/CUMM (4-12)
[2017-07-14] MEDS: CARVEDILOL 25 MG TABLET PO SCH ×3 (06:05→18:00)
[2017-07-14 06:06] LABS: CKMB % 12.7 %
[2017-07-14 06:07] LABS: Albumin 2.2 G/DL (3.4-5.0); Bilirubin,Total 1.4 MG/DL (0.2-1.0); Calcium 7.8 MG/DL (8.5-10.1); Osmolality,Calculated 280.3 MOS/KG (273-304); Total Protein 5.6 G/DL (6.4-8.3)
[2017-07-14 06:09] LABS: Troponin I Only 20.8 NG/ML (0.00-0.045)
[2017-07-14] MEDS ORDERED: DIAZEPAM 5 MG TABLET ONE (08:47)
[2017-07-14] MEDS ORDERED: diphenhydrAMINE CAP 25 MG CAPSULE ONE (08:48)
[2017-07-14 08:52] LABS: CKMB % 11.4 %
[2017-07-14] MEDS ORDERED: MEPERIDINE 25 MG/1 ML VIAL IV ONE (09:16)
[2017-07-14] MEDS: PANTOPRAZOLE 40 MG TABLET PO SCH (09:47)
[2017-07-14] MEDS: TICAGRELOR 90 MG TABLET PO SCH ×2 (09:47→20:54)
[2017-07-14] MEDS: AMIODARONE 200 MG TABLET PO SCH ×2 (09:47→20:54)
[2017-07-14] MEDS: GABAPENTIN 100 MG CAPSULE PO SCH ×3 (09:48→20:54)
[2017-07-14] MEDS: LEVOFLOXACIN 750 MG TABLET PO SCH (09:48)
[2017-07-14] MEDS: ENOXAPARIN 60 MG/0.6 ML SYRINGE SUBCUT SCH (09:54)
[2017-07-14] MEDS: BISACODYL 5 MG TABLET PO SCH (09:54)
[2017-07-14] MEDS ORDERED: LIDOCAINE 1% 20 ML VIAL ONE (10:03)
[2017-07-14] MEDS ORDERED: MIDAZOLAM 2 MG/2 ML VIAL ONE (10:06)
[2017-07-14] MEDS ORDERED: MEPERIDINE 25 MG/1 ML VIAL ONE (10:06)
[2017-07-14] MEDS ORDERED: HEPARIN 5,000 UNIT/1 ML VIAL ONE (10:06)
[2017-07-14] MEDS ORDERED: TIROFIBAN 5,000 MCG/100 ML PREMIX IV ONE (10:57)
[2017-07-14] MEDS ORDERED: TIROFIBAN 5,000 MCG/100 ML PREMIX IV SCH (11:00)
[2017-07-14] MEDS ORDERED: TICAGRELOR 90 MG TABLET ONE (11:41)
[2017-07-14 12:57] LABS: CKMB % 9.5 %
[2017-07-14 13:02] LABS: Troponin I Only 13.7 NG/ML (0.00-0.045)
[2017-07-14] MEDS: ASPIRIN CHEW 81 MG TABLET PO SCH (13:35)
[2017-07-14] MEDS: LISINOPRIL 2.5 MG TABLET PO SCH (16:05)
[2017-07-14] MEDS: ATORVASTATIN 40 MG TABLET PO SCH (20:54)
[2017-07-15] MEDS: CARVEDILOL 25 MG TABLET PO SCH ×3 (00:10→13:04)
[2017-07-15 05:01] LABS: Hemoglobin 10.2 GM/DL (14.0-18.0); Mean Corpuscular HGB Conc 32.9 GM/DL (32-36); Mean Corpuscular Hemoglobin 33 PG (27-34); Mean Platelet Volume 10.7 FL (9.6-12.0); Platelet Count 425 T/CUMM (130-400); Red Cell Distribution Width 12.6 % (9.3-17.3); White Blood Count 16.5 T/CUMM (4-12)
[2017-07-15 05:02] LABS: Basophils % 0.2 % (0.0-0.8); Eosinophils # 0.1 10*3/uL (0.0-0.87); Eosinophils % 0.8 % (0.00-10.9); Immature Granulocytes % 0.7 %; Immature Granulocytes Absolute 0.12 #; Lymphocytes # 1.6 10*3/uL (1.4-4.0); Lymphocytes % 9.8 % (21.2-54.2); Monocytes # 0.9 10*3/uL (0.11-0.8); Monocytes % 5.6 % (1.7-12.7); Neutrophils # 13.7 10*3/uL (1.4-7.4); Neutrophils % 82.9 % (38.7-73.9)
[2017-07-15 05:41] LABS: CKMB % 6.9 %
[2017-07-15 05:44] LABS: Troponin I Only 9.47 NG/ML (0.00-0.045)
[2017-07-15 05:48] LABS: Calcium 7.8 MG/DL (8.5-10.1); Osmolality,Calculated 276.4 MOS/KG (273-304); Potassium 4.1 MMOL/L (3.5-5.1)
[2017-07-15] MEDS: ASPIRIN CHEW 81 MG TABLET PO SCH (10:53)
[2017-07-15] MEDS: TICAGRELOR 90 MG TABLET PO SCH (10:53)
[2017-07-15] MEDS: AMIODARONE 200 MG TABLET PO SCH (10:54)
[2017-07-15] MEDS: BISACODYL 5 MG TABLET PO SCH (10:54)
[2017-07-15] MEDS: LEVOFLOXACIN 750 MG TABLET PO SCH (10:54)
[2017-07-15] MEDS: GABAPENTIN 100 MG CAPSULE PO SCH ×2 (10:54→15:07)
[2017-07-15] MEDS: ACETAMINOPHEN 325 MG TABLET PO SCH (10:55)
[2017-07-15] MEDS: PANTOPRAZOLE 40 MG TABLET PO SCH (10:55)
[2017-07-15] MEDS: LISINOPRIL 2.5 MG TABLET PO SCH (10:55)
[2017-07-15 11:54] VITALS: BP 122/80
[2017-07-15] MEDS ORDERED: AMIODARONE 200 MG TABLET PO SCH (21:00)
== END 2017-07-15 15:34 | disposition home health service (06) | DRG 247 ==
LOC: N.ED 13:31 → N.EDINP 14:44 → N.TELEN 16:59
PROVIDERS: ADMIT Internal Medicine Cardiovascular Disease; ATTEND Internal Medicine Cardiovascular Disease

== ENCOUNTER 2018-01-26 12:18 | Inpatient (IN) ==
[2018-01-26] MEDS ORDERED: MORPHINE 4 MG/1 ML VIAL IV STA (13:41)
[2018-01-26] MEDS ORDERED: PANTOPRAZOLE 40 MG VIAL IV STA (13:41)
[2018-01-26] MEDS ORDERED: ALUM/MAG/SIMETH/LIDO VISC 1:1 30 ML BOTTLE PO STA (13:41)
[2018-01-26] MEDS ORDERED: ONDANSETRON 4 MG/2 ML VIAL IV STA (13:41)
[2018-01-26 13:53] LABS: Basophils % 0.3 % (0.0-0.8); Eosinophils # 0.1 10*3/uL (0.0-0.87); Eosinophils % 0.7 % (0.00-10.9); Hematocrit 36.2 VOL% (42.0-52.0); Immature Granulocytes % 0.5 %; Immature Granulocytes Absolute 0.06 #; Lymphocytes # 1.8 10*3/uL (1.4-4.0); Lymphocytes % 15.4 % (21.2-54.2); Mean Corpuscular HGB Conc 33.1 GM/DL (32-36); Mean Corpuscular Hemoglobin 29 PG (27-34); Mean Corpuscular Volume 87.2 FL (87-102); Mean Platelet Volume 11.7 FL (9.6-12.0); Monocytes # 0.5 10*3/uL (0.11-0.8); Monocytes % 3.8 % (1.7-12.7); Neutrophils # 9.3 10*3/uL (1.4-7.4); Neutrophils % 79.3 % (38.7-73.9); Platelet Count 255 T/CUMM (130-400); Red Blood Count 4.15 MC/CUMM (3.8-5.5); White Blood Count 11.7 T/CUMM (4-12)
[2018-01-26 14:05] LABS: Alanine Aminotransferase 19 U/L (16-61); Albumin 3.6 G/DL (3.4-5.0); Alkaline Phosphatase 94 U/L (45-117); Amylase 92 U/L (25-115); Aspartate Amino Transferase 12 U/L (0-37); Blood Urea Nitrogen 14 MG/DL (7-18); Calcium 8.6 MG/DL (8.5-10.1); Glucose 98 MG/DL (74-106); Osmolality,Calculated 286.8 MOS/KG (273-304); Potassium 3.3 MMOL/L (3.5-5.1); Sodium 144 MMOL/L (136-145); Total Protein 7.7 G/DL (6.4-8.3); Troponin I < 0.015 NG/ML (0.00-0.045)
[2018-01-26 14:33] LABS: Apearance,Urine CLEAR (Clear); Bilirubin,Urine Negative (Negative); Blood, Urine Moderate mg/dL (Negative); Glucose,Urine (UA) Negative (Negative); Ketones,Urine Negative (Negative); Mucus,Urine Occasional /LPF (Occasional); Nitrite,Urine Negative (Negative); Protein,Urine 30 MG/DL; RBC,Urine 14 /HPF (0-4); Squamous Epithelial Cell,Urine Occasional /HPF (0-10); Urine Color Straw (Yellow); Urine Specific Gravity 1.008 (1.001-1.035); Urine Urobilinogen < 2.0 EU/DL (0.2-1.0); WBC,Urine 10 /HPF (0-6)
[2018-01-26 14:58] LABS: Lactic Acid 0.7 MMOL/L (0.4-2.0)
[2018-01-26] MEDS ORDERED: ONDANSETRON 4 MG/2 ML VIAL IV PRN (16:13)
[2018-01-26] MEDS ORDERED: PNEUMOCOCCAL VACCINE (13 VALENT) 0.5 ML SYRINGE IM ONE (17:28)
[2018-01-26] MEDS: ACETAMINOPHEN 325 MG TABLET PO PRN (18:02)
[2018-01-26] MEDS ORDERED: hydrALAZINE 20 MG/1 ML VIAL IV PRN (18:52)
[2018-01-26] MEDS ORDERED: LABETALOL 100 MG/20 ML VIAL IV PRN (18:54)
[2018-01-26] MEDS ORDERED: CARVEDILOL 12.5 MG TABLET PO SCH (21:00)
[2018-01-26] MEDS: TAMSULOSIN 0.4 MG CAPSULE PO SCH (21:02)
[2018-01-26] MEDS: FUROSEMIDE 40 MG TABLET PO SCH (21:02)
[2018-01-26] MEDS: ATORVASTATIN 80 MG TABLET PO SCH (21:02)
[2018-01-26] MEDS: CARVEDILOL 25 MG TABLET PO SCH (21:02)
[2018-01-26] MEDS: ENOXAPARIN 40 MG/0.4 ML SYRINGE SUBCUT SCH (21:05)
[2018-01-26] MEDS: hydrALAZINE 25 MG TABLET PO SCH (22:34)
[2018-01-27] MEDS: ACETAMINOPHEN 325 MG TABLET PO PRN (03:41)
[2018-01-27 04:19] LABS: Basophils % 0.2 % (0.0-0.8); Eosinophils # 0.1 10*3/uL (0.0-0.87); Eosinophils % 0.9 % (0.00-10.9); Hematocrit 33.5 VOL% (42.0-52.0); Immature Granulocytes % 0.5 %; Immature Granulocytes Absolute 0.04 #; Lymphocytes # 1.6 10*3/uL (1.4-4.0); Lymphocytes % 19.1 % (21.2-54.2); Mean Corpuscular HGB Conc 32.8 GM/DL (32-36); Mean Corpuscular Hemoglobin 29 PG (27-34); Mean Corpuscular Volume 88.4 FL (87-102); Mean Platelet Volume 11.3 FL (9.6-12.0); Monocytes # 0.6 10*3/uL (0.11-0.8); Monocytes % 7.4 % (1.7-12.7); Neutrophils # 6.1 10*3/uL (1.4-7.4); Neutrophils % 71.9 % (38.7-73.9); Platelet Count 220 T/CUMM (130-400); Red Blood Count 3.79 MC/CUMM (3.8-5.5); Red Cell Distribution Width 16.2 % (9.3-17.3); White Blood Count 8.4 T/CUMM (4-12)
[2018-01-27 05:04] LABS: Albumin 2.8 G/DL (3.4-5.0); Bilirubin,Total 1.1 MG/DL (0.2-1.0); Calcium 7.8 MG/DL (8.5-10.1); Osmolality,Calculated 285.8 MOS/KG (273-304); Potassium 3.5 MMOL/L (3.5-5.1); Risk Ratio 2.79; Thyroid Stimulating Hormone 2.8 uIU/ml (0.358-3.74); Total Protein 6.5 G/DL (6.4-8.3); VLDL CHOLESTEROL 11.4 MG/DL
[2018-01-27] MEDS: AMIODARONE 200 MG TABLET PO SCH (09:29)
[2018-01-27] MEDS: PANTOPRAZOLE 40 MG TABLET PO SCH (09:29)
[2018-01-27] MEDS: ASPIRIN EC 81 MG TABLET PO SCH (09:30)
[2018-01-27] MEDS: hydrALAZINE 25 MG TABLET PO SCH ×3 (09:30→20:57)
[2018-01-27] MEDS: CLOPIDOGREL 75 MG TABLET PO SCH (09:30)
[2018-01-27] MEDS: CARVEDILOL 25 MG TABLET PO SCH ×2 (09:30→17:16)
[2018-01-27] MEDS: DOCUSATE SODIUM 100 MG CAPSULE PO SCH (09:30)
[2018-01-27] MEDS: LOSARTAN 50 MG TABLET PO SCH (09:31)
[2018-01-27] MEDS ORDERED: FUROSEMIDE 40 MG/4 ML VIAL IV ONE (10:09)
[2018-01-27 11:01] LABS: Barbiturates Screen,Urine Negative (Negative); Benzodiazepines Screen,Urine Negative (Negative); Cannabinoid Screen,Urine Negative (Negative); Opiate Screen,Urine Positive (Negative); Phencyclidine Screen,Urine Negative (Negative)
[2018-01-27] MEDS: TAMSULOSIN 0.4 MG CAPSULE PO SCH (20:57)
[2018-01-27] MEDS: ATORVASTATIN 80 MG TABLET PO SCH (20:57)
[2018-01-27] MEDS: ENOXAPARIN 40 MG/0.4 ML SYRINGE SUBCUT SCH (20:57)
[2018-01-27] MEDS: FUROSEMIDE 40 MG TABLET PO SCH (20:57)
[2018-01-28 04:49] LABS: Calcium 8.2 MG/DL (8.5-10.1); Osmolality,Calculated 283.1 MOS/KG (273-304); Potassium 3.2 MMOL/L (3.5-5.1)
[2018-01-28] MEDS: LOSARTAN 50 MG TABLET PO SCH (08:32)
[2018-01-28] MEDS: DOCUSATE SODIUM 100 MG CAPSULE PO SCH (08:32)
[2018-01-28] MEDS: PANTOPRAZOLE 40 MG TABLET PO SCH (08:33)
[2018-01-28] MEDS: ASPIRIN EC 81 MG TABLET PO SCH (08:33)
[2018-01-28] MEDS: CARVEDILOL 25 MG TABLET PO SCH (08:33)
[2018-01-28] MEDS: CLOPIDOGREL 75 MG TABLET PO SCH (08:33)
[2018-01-28] MEDS: hydrALAZINE 25 MG TABLET PO SCH (08:33)
[2018-01-28] MEDS: AMIODARONE 200 MG TABLET PO SCH (08:33)
[2018-01-28 12:11] VITALS: BP 162/82
[2018-01-28] MEDS ORDERED: APIXABAN 5 MG TABLET PO SCH (21:00)
== END 2018-01-28 13:50 | disposition home or self-care (01) | DRG 305 ==
LOC: N.ED 12:18 → N.EDINP 16:13 → N.2W 16:57 → N.TELES 18:40
PROVIDERS: ADMIT Hospitalist; ATTEND Hospitalist